=== PATIENT | male | born 1995 | race Caucasian/White ===

== ENCOUNTER 2017-04-02 02:50 | Emergency (ER) | payer OTHER ==
[2017-04-02 04:21] LABS: Basophils % (Auto) 0.4 % (0.0-1.8); Eosinophils % (Auto) 0.4 % (0.0-4.3); Hematocrit 42.3 % (35.5-45.6); Hemoglobin 14.2 gm/dl (11.8-15.2); Mean Corpuscular HGB Conc 34 % (32-34); Mean Corpuscular Hemoglobin 28 pg (28-32); Mean Corpuscular Volume 82 fl (84-94); Platelet Count 240 K/mm3 (140-440); Red Blood Count 5.15 M/mm3 (3.65-5.03); Red Cell Distribution Width 12.3 % (13.2-15.2); White Blood Count 13.8 K/mm3 (4.5-11.0)
[2017-04-02 04:49] LABS: Anion Gap 24 mmol/L; BUN/Creatinine Ratio 17.14; Blood Urea Nitrogen 12 mg/dL (9-20); Calcium 8.7 mg/dL (8.4-10.2); Carbon Dioxide 20 mmol/L (22-30); Chloride 100.1 mmol/L (98-107); Glucose 99 mg/dL (75-100); Potassium 3.6 mmol/L (3.6-5.0); Sodium 140 mmol/L (137-145)
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
[2017-04-02 11:57] VITALS: BP 110/66
== END 2017-04-02 11:56 | disposition home or self-care (01) ==
LOC: ED 02:50
DX: S50.01XA Contusion of right elbow, initial encounter (principal); S80.12XA Contusion of left lower leg, initial encounter; S10.91XA Abrasion of unspecified part of neck, initial encounter; F10.920 Alcohol use, unspecified with intoxication, uncomplicated; F17.200 Nicotine dependence, unspecified, uncomplicated; V29.49XA Motorcycle driver injured in collision with other motor vehicles in traffic accident, initial encounter; Y93.89 Activity, other specified; Y92.89 Other specified places as the place of occurrence of the external cause; Y99.8 Other external cause status
CPT/HCPCS: 36415; 70450; 72125; 80048; 85025; 99284; G0480; 80320